=== PATIENT | male | born 1965 | race Caucasian/White ===

== ENCOUNTER → 2023-09-09 06:34 | Day surgery (SDC) | payer BC, SELFPAY ==
[2023-09-09 07:33] LABS: Glucose - Point of Care 180 mg/dl (70-99)
== END ==
LOC: GI 06:34
PROVIDERS: ATTENDING PHYSICIAN Internal Medicine Gastroenterology
DX: Z12.11 Encounter for screening for malignant neoplasm of colon (principal); D12.0 Benign neoplasm of cecum; D12.3 Benign neoplasm of transverse colon; K63.5 Polyp of colon; Z80.0 Family history of malignant neoplasm of digestive organs
CPT/HCPCS: 45385; 88305; 82962

== ENCOUNTER → 2023-09-10 06:25 | Outpatient (REF) | payer BC, SELFPAY | LOC: HWRAD 06:25 | PROVIDERS: ATTENDING PHYSICIAN Internal Medicine Gastroenterology; FAMILY PHYSICIAN Family Medicine | DX: R79.89 Other specified abnormal findings of blood chemistry (principal) | CPT/HCPCS: 76700 ==